=== PATIENT | male | born 1975 | race Caucasian/White ===

== ENCOUNTER 2017-05-13 10:54 | Emergency (ER) | payer BC ==
[2017-05-13 11:08] VITALS: BP 107/65
== END 2017-05-13 12:23 | disposition home or self-care (01) ==
LOC: ED 10:54
DX: S43.101A Unspecified dislocation of right acromioclavicular joint, initial encounter (principal); Z88.8 Allergy status to other drugs, medicaments and biological substances; X58.XXXA Exposure to other specified factors, initial encounter; Y93.89 Activity, other specified; Y99.8 Other external cause status; Y92.89 Other specified places as the place of occurrence of the external cause